=== PATIENT | female | born 1950 | race Caucasian/White ===

== ENCOUNTER → 2017-01-29 | Outpatient (CLI) | payer MEDICARE, OTHER ==
[~2017-01-29] MED LIST: APRESOLINE 25MG25 MG PO; APRESOLINE50 MG PO; ASPI325T6 PO; ASPIRIN 32325 MG/TAB PO; ASPIRIN E.C. 8181 MG PO; ATROVENT I0.2 MG/1 M IH; AUGMENTIN XR 101 TER PO; COREG 25MG25 MG/TAB PO; COUMADIN 5MG5 MG/TAB PO; DIABETA 5MG5 MG/TAB PO; GLUCOPHAGE XR500 M1 PO; INSLANT SQ; JANUVIA 100MG100 MG PO; LANTUS100 U/ML SC; LIPITOR 40MG TA40 MG PO; MUCINEX D 12001 TER PO; NITROQUICK0.4 MG SL; NITROSTAT0.4 MG/TAB SL; NOVOLOG FLEX100 U/ML SC; PLAVIX 75MG TAB75 MG PO; PRINIVIL40 MG PO; PROVENTIL0.09 MG/A1 IH; ROXICODONE 55 MG/TAB PO; SENOKOT S 50 MG1 TAB PO; TESSALON P100 MG/CAP PO; TYLENOL 325MG325 MG PO; ZESTRIL 20MG TA20 MG PO; ZITHROMAX 250M250 MG PO; ZOCOR 40MG40 MG PO
== END ==
LOC: MC.RAD 10:20
DX: Z12.31 Encounter for screening mammogram for malignant neoplasm of breast (principal)

== ENCOUNTER → 2017-04-30 | Outpatient (REF) | LOC: ZLAB.WCH 18:38 | DX: Z01.89 Encounter for other specified special examinations (principal) ==

== ENCOUNTER → 2017-11-01 | Outpatient (REF) | LOC: ZLAB.WCH 18:07 | DX: Z01.89 Encounter for other specified special examinations (principal) ==

== ENCOUNTER → 2018-02-24 | Outpatient (REF) | LOC: ZLAB.WCH 17:51 | DX: Z01.89 Encounter for other specified special examinations (principal) ==

== ENCOUNTER 2022-04-12 06:15 | Day surgery (SDC) | payer MEDICARE, OTHER ==
[2022-04-12] VITALS (165 sets, daily range): BP systolic 104–154; BP diastolic 49–80; PULSE 49–61; TEMP 98.4; O2SAT 91–98
[~2022-04-12] VITALS: Ht 160 cm; Wt 72.7 kg
[~2022-04-12 06:15] MED LIST changes: +HUMULIN N PE100 U/ML SQ
[2022-04-12 08:19] LABS: HEMOGLOBIN 11.9 g/dl (12.5-16.0); MEAN CELL VOLUME 90 fl (80.0-100.0); MEAN CORPUSCULAR HEMOGLOBIN 30 pg (27-31); MEAN CORPUSCULAR HGB CONC 33 g/dl (33.0-37.0); MEAN PLATELET VOLUME 11.6 fl (7.4-10.4); PLATELET COUNT 148 K/mm3 (130-400); RED BLOOD COUNT 4.03 M/mm3 (4.10-5.30)
[2022-04-12 08:23] LABS: HEMATOCRIT 36.1 % (37.0-47.0)
[2022-04-12 08:26] LABS: PROTHROMBIN TIME 11.1 SECONDS (9.7-12.8)
[2022-04-12 08:29] LABS: PARTIAL THROMBOPLASTIN TIME 31.1 SECONDS (26.0-37.0)
[2022-04-12] MEDS ORDERED: PLAVIX 75MG TAB75 MG PO (08:31)
[2022-04-12] MEDS ORDERED: COREG 25MG25 MG/TAB PO (08:31)
[2022-04-12] MEDS ORDERED: ASPIRIN 32325 MG/TAB PO (08:31)
[2022-04-12] MEDS ORDERED: FISH OIL 1000MG1 CAP PO (08:32)
[2022-04-12] MEDS ORDERED: MULTI VITAMINS1 TAB PO (08:33)
[2022-04-12] MEDS ORDERED: DIOVAN/HCT 12.51 TAB PO (08:37)
[2022-04-12] MEDS ORDERED: NITROSTAT0.4 MG/TAB SL (08:37)
[2022-04-12 08:44] LABS: CREATININE, serum 0.7 mg/dL (0.57-1.11); POTASSIUM 3.5 mmol/L (3.5-4.5)
--- NOTE | 2022-04-12 09:18 | NUR ---
See merge for all medication, assessment, intervention, and vital sign times.
[2022-04-12] MEDS ORDERED: ASPIRIN E.C. 8181 MG PO (10:09)
[2022-04-12] MEDS ORDERED: CELEBREX 200MG200 MG PO (10:10)
--- NOTE | 2022-04-12 12:10 | NUR ---
2 ml of air released from right radial band,bleeding occured at site.2 ml of air reinstilled.
--- NOTE | 2022-04-12 15:30 | NUR ---
All air removed from right radial band in 2-3 ml incriments.No bleeding occured at site.Dressing of gauze and coban applied.
--- NOTE | 2022-04-12 16:00 | NUR ---
Discharge instructions given to pt.Pt verbalizes understanding.Pt escorted out via wheelchair by this nurse.
== END 2022-04-12 16:42 ==
LOC: COL.CAR 06:15
PROVIDERS: Internal Medicine Cardiovascular Disease
DX: I25.10 Atherosclerotic heart disease of native coronary artery without angina pectoris (principal)
CPT/HCPCS: C1769; C1894; J1644; J2250; J3010